=== PATIENT | female | born 1975 | race Caucasian/White ===

== ENCOUNTER → 2018-08-01 | Outpatient (CLI) | payer MEDICARE ==
--- NOTE | 2018-08-01 09:11 | RAD ---
EXAM: Cervical spine MRI without contrast. HISTORY: Pain. TECHNIQUE: Multiplanar, multisequence magnetic resonance imaging of the cervical spine was performed without contrast. COMPARISON: CT dated 05/31/2009 and MRI dated 08/14/2008. FINDINGS: There is instrumented anterior spinal fusion and interbody fusion with bony bridging at C5-C6. There is cervical kyphosis centered at C3-C4. There is mild anterolisthesis of C2 on C3 and retrolisthesis of C4 on C5. There is degenerative endplate remodeling with disc space narrowing and osteophytosis primarily at C4-C5, and to lesser extent, C3-C4. No suspicious osseous lesion is seen. No spinal cord lesion is seen. The skull base and posterior fossa are unremarkable. There is incidental mild left maxillary sinus mucosal thickening with a tiny mucous retention cyst. At C2-C3, there is mild left facet arthropathy. There is no stenosis. At C3-C4, there are bilateral posterior lateral disc osteophyte complexes superimposed on a disc bulge and anterior predominant endplate osteophytosis. There is bilateral uncovertebral arthropathy. There is mild to moderate right and moderate to severe left foraminal stenosis. There is flattening of the ventral aspect of the spinal cord with mild central canal stenosis measuring 9.2 mm in anterior posterior dimension. At C4-C5, there are bilateral posterior lateral disc osteophyte complexes superimposed on a disc bulge and endplate osteophytosis. There is bilateral uncovertebral arthropathy. There is severe bilateral foraminal stenosis. There is flattening of the ventral aspect of the spinal cord with moderate central canal stenosis measuring 7.2 mm in anterior posterior dimension. At C5-C6, there is instrumented fusion. There is no stenosis. At C6-C7, there is a disc bulge and endplate remodeling. There is no stenosis. IMPRESSION: 1. Instrumented anterior spinal fusion and interbody fusion at C5-C6. 2. Multilevel degenerative change within the cervical spine, primarily at C4-C5, and to lesser extent, C3-C4. This is progressed compared to the prior study, resulting in mild to moderate right and moderate to severe left foraminal and mild central canal stenosis at C3-C4 and severe bilateral foraminal and moderate central canal stenosis at C4-C5. 3. Mild cervical kyphosis and slight listhesis of C2 on C3 and C4 on C5. Electronically signed by: Yanelis Tejada MD (08/01/2018 9:08 AM) [facility]
== END | disposition home or self-care (01) ==
LOC: MRI 09:06
PROVIDERS: ATTEND Neurological Surgery
DX: M54.12 Radiculopathy, cervical region (principal); M51.36 Other intervertebral disc degeneration, lumbar region; M48.02 Spinal stenosis, cervical region
CPT/HCPCS: 72141

== ENCOUNTER → 2018-08-13 | Outpatient (CLI) | payer MEDICARE ==
[~2018-08-13] MED LIST: ARMO150T4 PO; DIVA500T2 PO; IOHEXOL 180 MG/ML 10 ML VIAL. ONE; LAMO150T3 PO; NALT50TA PO; PROP80CA3 PO; methylPREDNISolone ACETATE 40 MG/ML VIAL. ONE; methylPREDNISolone ACETATE 80 MG/ML VIAL. ONE
--- NOTE | 2018-08-13 20:22 | PAIN ---
DATE OF SERVICE: 08/13/2018 PROGRESS NOTE FOR PAIN CLINIC DIAGNOSES: Cervical radiculopathy with cervical spinal stenosis and cervical post-laminectomy syndrome. HISTORY OF PRESENT ILLNESS: The patient is a 43-year-old female who returns for followup status post previous cervical epidural steroid injections in several years since she has been seen. The patient reports the pain now has begun about a year ago again in the base of the neck and shoulders, right greater than left, difficulty sleeping, cannot get comfortable in the last several months, has been getting worse, gradually increasing, not a result of any new or specific injury or accident she is aware of. Pain rasp described as constant, throbbing, tingling with radiating pain, changes during the day with activity and aching. 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 She is not letting it to low her down much, but she is having much difficulty at the end of the day and by the time she is ready for trying to sleep, it is very difficult to do so because of the pain. The patient reports again cannot get comfortable, rates her disability rate from 0-10, 10 being the worst, is a 5 with family home responsibilities, recreation, social activity, occupation, 3 with sexual behavior, 4 with self-care and 5 with life support activities. The patient has had physical therapy herself and also chiropractic treatments and does exercise twice a week continuously and epidural injections, which helped significantly several years ago. The patient reports no loss of motor function but occasionally dropping some items with her right hand but not consistently. The patient reports otherwise no new motor or sensory deficits. The patient's medication regimen was reviewed. She is taking naltrexone, Lamictal, Depakote, propranolol and the Nuvigil. ALLERGIES: The patient has no known drug allergies. REVIEW OF SYSTEMS: The patient's review of systems is positive for those items mentioned in history of present illness. All systems reviewed, is otherwise negative. It is complete, full and well documented on the patient's chart. PHYSICAL EXAMINATION: VITAL SIGNS: The patient's blood pressure is 131/82, pulse 49, respirations 18 and temperature 98.5 degrees Fahrenheit. Height is 5 feet 6 inches and weighs 164 pounds. GENERAL: The patient is awake, alert, oriented, appropriate and very pleasant demeanor. HEENT: Shows normocephalic and atraumatic. Extraocular movements are intact and symmetrical. Oral cavity: Mucous membranes are moist and pink. Dentition is intact. NECK: Shows anterior throat supple without palpable lymphadenopathy noted. Swallow reflex symmetrical. CHEST: Shows normal on inspection. Breath sounds clear to auscultation bilaterally. HEART: Shows S1 and S2 clear. No murmurs auscultated. ABDOMEN: Soft, nontender and nondistended. No palpable organomegaly is noted. No rebound or guarding demonstrated. BACK: Shows spine grossly in the midline, normal-appearing cervical lordotic curvature and thoracic kyphotic curvature. Cervical paraspinous muscle shows symmetrical on inspection. On palpation shows some moderate tenderness but only diffusely bilaterally without radiation with good rotational motion of cervical spine, both laterally as well as extension and flexion with some minor guarding with extension but not with forward flexion. EXTREMITIES: Upper extremities show deep tendon reflexes at 2+ in the biceps and triceps tendons. Motor exam is strong with fiscal manager strength rated at 5/5 as is bicep and tricep flexion is symmetrical bilaterally. Peripheral pulses are 2+ radial distribution. No peripheral edema is noted. Options were discussed with the patient. The patient's old chart was reviewed as well as her current medication regimen updated. Current review of systems updated today as well and we will proceed with a cervical epidural steroid injection today with fluoroscopic guidance. Risks were again discussed including, but not limited to bleeding, infection, possibility of epidural hematoma and subsequent neurological compromise, dural puncture, headaches, spinal cord and/or nerve damage, side effects of steroid medication and poor results regarding pain control. The patient understands and wished to proceed. The patient will return to the clinic in approximately 2 weeks for followup, was counseled as to return appointment, activity level and side effects to be aware of. DIAGNOSES: Cervical radiculopathy with cervical spinal stenosis and cervical post-laminectomy syndrome. PROCEDURE: Cervical epidural steroid injection, translaminar approach, C6-C7 level using C-arm fluoroscopic guidance under sterile prep and drape using local anesthetic. MEDICATIONS INJECTED: A total of 120 mg Depo-Medrol plus 10 mL of preservative-free normal saline and 2 mL of Isovue for contrast. CONDITION AT DISCHARGE: Stable. The patient tolerated the procedure well and had no complications. ARNULFO MCDANIEL MD DR: Wanda JOB#: [id number] / [id number]
== END | disposition home or self-care (01) ==
LOC: PNCL 14:33
PROVIDERS: ATTEND Anesthesiology
DX: M54.12 Radiculopathy, cervical region (principal); M48.02 Spinal stenosis, cervical region; M96.1 Postlaminectomy syndrome, not elsewhere classified; G47.9 Sleep disorder, unspecified; M25.511 Pain in right shoulder; Z98.890 Other specified postprocedural states
CPT/HCPCS: 62321; J1030; J1040; Q9965

== ENCOUNTER → 2018-08-30 | Outpatient (CLI) | payer MEDICARE ==
[~2018-08-30] MED LIST changes: -IOHEXOL 180 MG/ML 10 ML VIAL. ONE; -methylPREDNISolone ACETATE 40 MG/ML VIAL. ONE; -methylPREDNISolone ACETATE 80 MG/ML VIAL. ONE
--- NOTE | 2018-08-30 16:56 | RAD ---
Cervical spine, 2 views, 08/30/2018: HISTORY: Neck pain There has been a previous anterior spinal fusion at C5-6 with a surgical plate and [address] anteriorly. There is severe narrowing of the C4-5 disc space with marginal spurring and mild chronic retrolisthesis. This was also evident on an old CT study from 05/31/2009. There is moderate disc space narrowing at and spurring at C3-4 which has developed since 2008. There are mild degenerative changes involving scattered facet joints. No fracture is evident. The prevertebral soft tissues are unremarkable. IMPRESSION: 1. Old anterior spinal fusion at C5-6. 2. Severe degenerative disc disease at C4-5 with mild chronic retrolisthesis. 3. Worsening moderate degenerative disc disease at C3-4. Electronically signed by: Kwan Scruggs MD (08/30/2018 4:51 PM) [facility]
== END | disposition home or self-care (01) ==
LOC: RAD 14:25
PROVIDERS: ATTEND Neurological Surgery
DX: M50.31 Other cervical disc degeneration, high cervical region (principal)
CPT/HCPCS: 72040

== ENCOUNTER → 2018-09-16 | Outpatient (CLI) | payer MEDICARE ==
[~2018-09-16] MED LIST changes: +DOCU-109 PO; +METH750T2 PO; +OXYC5TAB4 PO
[2018-09-16 15:57] LABS: BASO % 0 % (0-3); EOS # 0.2 x10^3/uL (0.0-0.7); EOS % 3 % (0-3); HEMATOCRIT 38.5 % (36.0-47.0); HEMOGLOBIN 13.5 g/dL (12.0-15.5); LYMPH # 2.1 x10^3/uL (1.0-4.8); LYMPH % 35 % (24-48); MEAN CORPUSCULAR HEMOGLOBIN 33 pg (25-35); MEAN CORPUSCULAR HGB CONC 35 g/dL (31-37); MEAN CORPUSCULAR VOLUME 93 fL (79-100); MONO # 0.6 x10^3/uL (0.0-1.1); MONO % 10 % (0-9); NEUT # 3.1 x10^3uL (1.8-7.7); NEUT % 52 % (31-73); PLATELET COUNT 205 x10^3/uL (140-400); RED BLOOD COUNT 4.15 x10^6/uL (3.50-5.40); RED CELL DISTRIBUTION WIDTH 12.9 % (11.5-14.5)
[2018-09-16 16:17] LABS: ALBUMIN 3.6 g/dL (3.4-5.0); ALBUMIN/GLOBULIN RATIO 1.1 (1.0-1.7); CALCIUM 8.8 mg/dL (8.5-10.1); CREATININE 0.9 mg/dL (0.6-1.0); GFR 68.3; POTASSIUM 4.2 mmol/L (3.5-5.1); TOTAL BILIRUBIN 0.5 mg/dL (0.2-1.0)
== END | disposition home or self-care (01) ==
LOC: SURGPAT 14:18
PROVIDERS: ATTEND Neurological Surgery
DX: Z01.818 Encounter for other preprocedural examination (principal); M54.12 Radiculopathy, cervical region; M48.02 Spinal stenosis, cervical region
CPT/HCPCS: 36415; 80053; 85025; 87641

== ENCOUNTER → 2018-10-21 | Outpatient (CLI) | payer MEDICARE ==
[2018-09-26 11:05] VITALS: BP 110/71
--- NOTE | 2018-10-21 16:59 | RAD ---
Cervical spine, 2 views, 10/21/2018: HISTORY: Postop evaluation Comparison is made to a study from 08/30/2018. The upper aspect of the anterior fixation plate at C5-6 evident on the previous study has been removed. The lower aspect of that plate with its [address] extending into the C6 body. The C5-6 disc space remains fused. A new anterior fixation plate has been placed with 2 screws extending into the C3, C4 and C5 vertebral bodies. Partially radiopaque disc spacers have been placed at C3-4 and C4-5. There are moderate residual posterior spurs at C3-4 and C4-5. There appears to be slight residual retrolisthesis at C4-5. There are mild degenerative changes involving scattered facet joints bilaterally. IMPRESSION: 1. New anterior spinal fusion from C3 through C5 as described above. 2. Slight residual retrolisthesis at C4-5. 3. Moderate multilevel degenerative change. Electronically signed by: Kwan Scruggs MD (10/21/2018 4:56 PM) [facility]
== END | disposition home or self-care (01) ==
LOC: RAD 14:35
PROVIDERS: ATTEND Neurological Surgery
DX: M43.22 Fusion of spine, cervical region (principal); M47.892 Other spondylosis, cervical region; M46.02 Spinal enthesopathy, cervical region
CPT/HCPCS: 72040

== ENCOUNTER → 2018-12-16 | Outpatient (CLI) | payer MEDICARE ==
[2018-09-26 11:05] VITALS: BP 110/71
--- NOTE | 2018-12-16 12:49 | RAD ---
EXAM: Cervical spine, 2 views. HISTORY: Fusion. COMPARISON: 10/21/2018 FINDINGS: 2 views the cervical spine are obtained. There is instrumented intraspinal fusion and interbody fusion at C3-C5. There is also an anterior plate and fixation screws at C6 and interbody fusion at C5-C6. There is at least partial bony bridging at C5-C6. There is stable minimal retrolisthesis of C5 on C6. There is minimal anterolisthesis of C6 on C7 and C7 on T1. There is multilevel facet arthropathy. IMPRESSION: 1. Instrumented fusion, described above. This unchanged compared to the prior study. 2. Stable slight anterolisthesis of C6 on C7 and C7 on T1. 3. Multilevel facet arthropathy. Electronically signed by: Yanelis Tejada MD (12/16/2018 12:46 PM) [facility]
== END | disposition home or self-care (01) ==
LOC: RAD 10:43
PROVIDERS: ATTEND Neurological Surgery
DX: M43.22 Fusion of spine, cervical region (principal); M43.12 Spondylolisthesis, cervical region; M12.88 Other specific arthropathies, not elsewhere classified, other specified site
CPT/HCPCS: 72040

== ENCOUNTER → 2019-02-25 | Outpatient (CLI) | payer MEDICARE ==
[2018-09-26 11:05] VITALS: BP 110/71
[~2019-02-25] MED LIST changes: +BARIUM SULFATE 40% (APPLE) 148 GM PWD. PO ONE
--- NOTE | 2019-02-25 15:03 | RAD ---
Exam: Video Swallowing Study Date: 02/25/2019 History: Clinical suspicion for aspiration Comparison: None Procedure: Video fluoroscopy of the neck was performed from the lateral projection following ingestion of thin, nectar thick, puree and solid- consistency barium which was administered by the speech pathologist. Findings/ Impression: There was no laryngeal penetration or aspiration of the various consistencies barium observed. There is mild apparent narrowing of the subglottic airway, with mild deviation to the left. In addition, there our significant residuals particularly in the piriforms which often persisted despite numerous sequential swallows. Cervical spine hardware is partially profiled. Please see speech pathology's report for further details of examination. Electronically signed by: Justice Pereyra MD (02/25/2019 3:00 PM) [facility]
== END | disposition home or self-care (01) ==
LOC: RAD 12:40
DX: J39.8 Other specified diseases of upper respiratory tract (principal)
CPT/HCPCS: 74230

== ENCOUNTER → 2019-03-25 | Outpatient (CLI) | payer MEDICARE ==
[2018-09-26 11:05] VITALS: BP 110/71
[~2019-03-25] MED LIST changes: -BARIUM SULFATE 40% (APPLE) 148 GM PWD. PO ONE
--- NOTE | 2019-03-25 09:52 | RAD ---
LUMBAR SPINE WO CONTRAST Date: 03/25/2019 8:15 AM Indication: Back pain Comparison: None. Technique: Multi-planar multi-weighted magnetic resonance imaging of the lumbar spine was performed without intravenous contrast using the standard lumbar spine protocol. FINDINGS: The lumbar spine is normally aligned. No acute fracture. Mild multilevel degenerative disc desiccation and disc height loss. Trace degenerative endplate edema along the anterior superior aspect of L3. The conus terminates at a normal level. No abnormal signal is seen within the visualized distal spinal cord. No clumping of intrathecal nerve roots. No soft tissue abnormality in the visualized abdomen or pelvis. T12-L1: No disc bulge. No facet arthropathy. No significant spinal stenosis or neural foraminal narrowing. L1-L2: No disc bulge. No facet arthropathy. No significant spinal stenosis or neural foraminal narrowing. L2-L3: Mild disc bulge with annular tear. No facet arthropathy. No significant spinal stenosis or neural foraminal narrowing. L3-L4: No disc bulge. No facet arthropathy. No significant spinal stenosis or neural foraminal narrowing. L4-L5: Mild disc bulge. Mild facet arthropathy. No significant spinal stenosis or neural foraminal narrowing. L5-S1: No disc bulge. Mild facet arthropathy. No significant spinal stenosis or neural foraminal narrowing. IMPRESSION: Mild lumbar spondylosis. No significant spinal stenosis or neural foraminal narrowing. Electronically signed by: Nick Hampton MD (03/25/2019 9:49 AM) [facility]
== END | disposition home or self-care (01) ==
LOC: MRI 08:34
PROVIDERS: ATTEND Neurological Surgery
DX: M47.26 Other spondylosis with radiculopathy, lumbar region (principal); M12.88 Other specific arthropathies, not elsewhere classified, other specified site; M51.16 Intervertebral disc disorders with radiculopathy, lumbar region; R29.890 Loss of height
CPT/HCPCS: 72148

== ENCOUNTER → 2019-08-20 | Outpatient (CLI) | payer MEDICARE ==
[2018-09-26 11:05] VITALS: BP 110/71
[~2019-08-20] MED LIST changes: +BUPIVACAINE MPF 0.25% 10 ML VIAL. ONE; +IOHEXOL 180 MG/ML 10 ML VIAL. ONE; +methylPREDNISolone ACETATE 80 MG/ML VIAL. ONE
--- NOTE | 2019-08-21 00:23 | PAIN ---
DATE OF SERVICE: 08/20/2019 PROGRESS NOTE FOR PAIN CLINIC DIAGNOSES: 1. Cervical radiculopathy with cervical spinal stenosis and cervical post-laminectomy syndrome. 2. Lumbar and lumbosacral spondylosis. HISTORY OF PRESENT ILLNESS: The patient is a 44-year-old female who returns for followup status post cervical epidural steroid injections. The patient most recently seen about 1 year ago, 08/13/2018. The patient did well, but had anterior cervical diskectomy and fusion, which has been helping the pain in the neck significantly. Her main complaint today is low back and right-sided pain in the low back radiating to the right posterior gluteus and thigh, mostly on the right side of low back, worse with standing, walking, changing positions, bending, especially extension of the lumbar spine and axial loading of the low back, causing significant pain and pain radiating to the rib cage on the right side in the flank. The patient reports the pain is aching and sharp in quality, shooting, cramping, stabbing across the base of the neck, has some tingling as well, but in the low back and right side, it is radiating and becoming more constant. The patient reports it is a 9 on a scale of 10 at its worst, 7 on average, 4 at its least and is a 7 today. The patient did have an MRI scan of the lumbar spine dated 03/25/2019 showing some mild lumbar spondylosis, no significant spinal stenosis or neuroforaminal narrowing with significant pain with rotational motion, especially to the right side, worse with standing. 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 The patient reports no loss of motor function, but significant fatigability in the right hip with standing. The patient reports it awakens her from sleep about every 6-8 hours, does not cause new bowel or bladder incontinence or other complaints. PHYSICAL EXAMINATION: VITAL SIGNS: The patient's blood pressure is 130/66, pulse of 57, respirations 18, temperature 97.9 degrees Fahrenheit. Height is 5 feet 6 inches, weight is 157 pounds. GENERAL: The patient is awake, alert, oriented, appropriate, very pleasant demeanor. HEENT: Shows normocephalic, atraumatic. Extraocular movements are intact and symmetrical. Oral cavity, mucous membranes are moist and pink. Dentition is intact. NECK: Shows anterior throat supple without palpable lymphadenopathy noted. Swallow reflex symmetrical. CHEST: Shows normal on inspection. Breath sounds are clear bilaterally. HEART: Shows S1, S2 clear. No murmurs auscultated. ABDOMEN: Soft, nontender, nondistended. No palpable organomegaly is noted. There is no rebound or guarding demonstrated. BACK: Shows spine grossly in the midline. Normal-appearing thoracic kyphosis, some minor flattening of lumbar lordotic curvature. Lumbar paraspinous muscle shows symmetrical on inspection, on palpation shows some mild tenderness, but only diffusely in the low lumbar distribution of paraspinous muscles. The patient has significant pain, however, with rotation to the right greater than 10 degrees as well as with extension of the lumbar spine at 10 degrees with significant pain in the right side of the low back with some radiation in the posterior gluteus, but only mildly. The patient shows better forward flexion at 45 degrees of lumbar spine without significant pain reported, the left lateral rotation with some mild pain reported on the right side with rotation to the left at 10 degrees. EXTREMITIES: The patient's lower extremities show deep tendon reflexes 2+ in the patellar, 1+ tendo-calcaneus tendons. Motor exam is strong with 5/5 dorsiflexion, extension, quadriceps and hamstring flexion symmetrical. Peripheral pulses are 1+ posterior tibia. No peripheral edema is noted bilaterally. Options were discussed with the patient. The patient's old chart was reviewed as her current medication regimen updated. Current review of systems updated today as well. We will proceed with right-sided L4-L5 and L5-S1 facet joint injections today with fluoroscopic guidance. Risks were again discussed including, but not limited to bleeding, infection, possibility of epidural hematoma, subsequent neurological compromise, dural puncture, headaches, spinal cord and/or nerve damage, side effects of steroid medication and poor results regarding pain control. The patient understands and wished to proceed. The patient will return to clinic in approximately 2 weeks for followup. She was counseled on return appointment, activity level, and side effects to be aware of. DIAGNOSIS: Lumbar and lumbosacral spondylosis. PROCEDURE: Lumbar L4-L5 and L5-S1 facet joint injections using C-arm fluoroscopic guidance under sterile prep and drape using local anesthetic. MEDICATION INJECTED: A total of 80 mg Depo-Medrol plus total of 2 mL of 0.25% bupivacaine and 1 mL total of contrast. CONDITION AT DISCHARGE: Stable. The patient tolerated the procedure well, had no complications. ARNULFO MCDANIEL MD DR: CAS/sophia JOB#: [id number] / [id number]
== END | disposition home or self-care (01) ==
LOC: PNCL 13:55
PROVIDERS: ATTEND Anesthesiology
DX: M47.817 Spondylosis without myelopathy or radiculopathy, lumbosacral region (principal); M50.10 Cervical disc disorder with radiculopathy, unspecified cervical region; M96.1 Postlaminectomy syndrome, not elsewhere classified
CPT/HCPCS: 64493; 64494; J1040; J3490; Q9965